=== PATIENT | male | born 1975 | race Caucasian/White ===

== ENCOUNTER 2016-06-22 10:11 | Emergency (ER) | payer MEDICAID ==
[~2016-06-22] VITALS: Ht 177.8 cm; Wt 100.0 kg
[2016-06-22 10:15] VITALS: Ht 177.8 cm; Wt 100.0 kg
[2016-06-22] MEDS ORDERED: DIPHTH/TET/ACEL PERTUSS (ADULT) 0.5 ML VIAL IM* ONE (11:30)
--- NOTE | 2016-06-22 11:58 | RADRPT ---
PROCEDURE: Left hand series CLINICAL INDICATION: Left hand pain after trauma TECHNIQUE: Three views of the left hand were obtained. COMPARISON: No prior studies are available for comparison. FINDINGS: There are 2 focal lucencies within the central portion of the third distal phalanx. These appear sm oothly marginated, there is no associated fracture. There is a likely congenital in nature. The le ft proximal interphalangeal joint appears to be fixed in flexion, the distal phalangeal joint may be fixed in extension. Alignment is otherwise intact. Is no evidence of acute fracture. Joint space s are well maintained. There is no evidence of osteophyte formation or erosions. The soft tissues are within normal limits. IMPRESSION: 1. 2 tiny lucencies within the central portion of the third distal phalanx are likely congenital in nature. There is no evidence of acute fracture. 2. The third proximal interphalangeal joint appears to be fixed in flexion and the third distal int erphalangeal joint appears to be fixed in extension. These findings may represent ligamentous injur y. RPTAT: AA .Mak Mansfield MD, Date Time Electronically viewed and signed by .Mak Mansfield MD, MD on 06/22/2016 11:57 .B/
--- NOTE | 2016-06-22 12:44 | ERD ---
ER Documentation Chief Complaint Date/Time DATE: 06/22/16 TIME: 12:40 Chief Complaint left 3erd 4th digit lac HPI This is a 41-year-old male that presents to the ER with a laceration to his left third and fourth digits. Patient was using a router to make holes and wanted and hurt himself this way. Patient does admit to third digit numbness. Bleeding was controlled before arriving to the ER. Patient denies any foreign bodies in his laceration. Patient is right-hand dominant. ROS 12 point review of systems was done, all negative except per HPI. Medications Home Meds Active Scripts Hydrocodone/Acetaminophen ([place] 5-325 Tablet) 1 Each Tablet, 1 TAB PO Q6H Y for PAIN, #15 TAB Prov:JOAN MADSEN C 06/22/16 Ibuprofen* (Motrin*) 600 Mg Tab, 600 MG PO Q6, #30 TAB Prov:TENAJOAN C 06/22/16 Cephalexin* (Keflex*) 500 Mg Capsule, 500 MG PO QID for 7 Days, CAP Prov:TENAJOAN C 06/22/16 Allergies Allergies: Coded Allergies: No Known Allergy (Unverified , 06/22/16) PMhx/Soc Medical and Surgical Hx: pt denies Medical Hx, pt denies Surgical Hx Hx Alcohol Use: Yes Hx Substance Use: No Hx Tobacco Use: No Smoking Status: Never smoker Physical Exam Vitals Vital Signs Date Time Temp Pulse Resp B/P Pulse Ox O2 Delivery O2 Flow Rate FiO2 06/22/16 10:15 98.1 73 20 140/73 99 Physical Exam GENERAL: The patient is well developed and appropriate for usual state of health , in no apparent distress. HEENT: Atraumatic. CHEST: Clear to auscultation bilaterally. There are no rales, wheezes or rhonchi. HEART: Regular rate and rhythm. No murmurs, clicks, rubs or gallops. EXTREMITIES: Left hand: There is macerated skin to the dorsal fourth digit. DTP , DTS are intact. Patient has normal sensations. There is macerated skin to the dorsal 3rd digit. DIP joint is fixed in hyperextension, PIP joint is fixed in hyperflexion NEURO: Alert and oriented. Results 24 hrs Current Medications Medications (Trade) Dose Ordered Sig/Enoch Route PRN Reason Start Time Stop Time Status Last Admin Dose Admin Diphtheria/ Tetanus/Acell Pertussis (Adacel) 0.5 ml ONCE ONCE IM* 06/22/16 11:30 06/22/16 11:31 DC 06/22/16 11:23 Procedures/MDM This is a 41-year-old male presents to the ER with a laceration to his fingers. 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 Patient however is neurovascularly intact. Hand specialist will be called and consulted on this case. At this time laceration repair is not able to be done as skin is macerated. Area was cleaned with copious amounts of normal saline and explored no foreign body. There is no evidence of fracture dislocation on x-ray. Patient was given a tetanus shot without any complications. Hand specialist was unable to be reached however patient was strongly urged to go to orthopedic clinic at [facility]. Patient and was placed in a splint to immobilize his third digit. He was neurovascularly intact before and after splint application. He will be sent home with antibiotics. He needs follow-up urgently. I shared my medical decision making with the patient and the importance of going to all reviewed and clinic. Patient understands and agrees with this plan. Departure Diagnosis: Primary Impression: Laceration Condition: Stable JOAN MADSEN Jun 22, 2016 12:44
[2016-06-22] MEDS ORDERED: CEPH-443 PO (13:57)
[2016-06-22] MEDS ORDERED: IBUP-1542 PO (13:58)
[2016-06-22] MEDS ORDERED: HYDR-906 PO (13:58)
[2016-06-22 14:15] VITALS: BP 150/93; PULSE 57; RESP 18
== END 2016-06-22 14:10 | disposition home or self-care (01) ==
LOC: FTE 10:11
DX: S61.213A Laceration without foreign body of left middle finger without damage to nail, initial encounter (principal); S61.215A Laceration without foreign body of left ring finger without damage to nail, initial encounter; W31.2XXA Contact with powered woodworking and forming machines, initial encounter; Y92.9 Unspecified place or not applicable; Z23 Encounter for immunization
CPT/HCPCS: 73130; 90471; 90715; Z7502